=== PATIENT | female | born 1965 | race Caucasian/White ===

== ENCOUNTER 2023-06-07 06:00 | Outpatient (RCR) | payer BC, SELFPAY | END 2023-06-13 23:59 | disposition home or self-care (01) | LOC: WPT 06:00 | PROVIDERS: Family Provider Nurse Practitioner Family; PCP Nurse Practitioner Family; Visit Provider Neurological Surgery | DX: M54.2 Cervicalgia (principal) | CPT/HCPCS: 97110; 97112; 97161; 97530 ==

== ENCOUNTER 2023-06-14 06:00 | Outpatient (RCR) | payer BC, SELFPAY | END 2023-07-13 23:59 | disposition home or self-care (01) | LOC: WPT 06:00 | PROVIDERS: PCP Nurse Practitioner Family; Visit Provider Neurological Surgery | DX: M54.2 Cervicalgia (principal) | CPT/HCPCS: 97110; 97112; 97530 ==

== ENCOUNTER 2023-07-14 06:00 | Outpatient (RCR) | payer BC, SELFPAY | END 2023-08-13 23:59 | disposition home or self-care (01) | LOC: WPT 06:00 | PROVIDERS: PCP Nurse Practitioner Family; Visit Provider Neurological Surgery | DX: M54.2 Cervicalgia (principal) | CPT/HCPCS: 97110; 97112; 97530 ==

== ENCOUNTER 2023-08-14 06:00 | Outpatient (RCR) | payer BC, SELFPAY | END 2023-09-12 23:59 | disposition home or self-care (01) | LOC: WPT 06:00 | PROVIDERS: PCP Nurse Practitioner Family; Visit Provider Neurological Surgery | DX: M54.2 Cervicalgia (principal) | CPT/HCPCS: 97110; 97112; 97530 ==

== ENCOUNTER → 2024-05-15 12:44 | Outpatient (BNVA) | payer BC, SELFPAY | PROVIDERS: PCP Nurse Practitioner Family; Visit Provider Podiatrist Foot & Ankle Surgery | DX: M79.672 Pain in left foot (principal); M72.2 Plantar fascial fibromatosis | CPT/HCPCS: 73630 ==

== ENCOUNTER 2025-03-09 14:03 | Outpatient (CLI) | payer BC, SELFPAY ==
--- NOTE | 2025-03-09 13:45 | US_ITS ---
WS: [id number] THYROID ULTRASOUND HISTORY: E03.9 - Hypothyroidism, unspecified COMPARISON: None available. Right lobe: 1.6 cm x 2.0 cm x 4.5 cm (w x ap x l). Volume: 6.6 cm3. Heterogeneous thyroid gland. There are few cystic areas and a lobulated contour of the gland. There is no discrete nodule or mass. Mild increased vascularity throughout the gland. Left lobe: 1.4 cm x 2.2 cm x 4.3 cm (w x ap x l). Volume: 6.4 cm3. Diffuse heterogeneous gland. There are a few tiny cystic areas with no solid nodule or mass. Increased vascularity. Isthmus: 0.4 cm. Enlarged heterogeneous isthmus. US/US thyroid [id number] IMPRESSION: 1. No thyroid nodules. 2. Heterogeneous thyroid gland with mild increased vascularity.
== END 2025-03-09 14:04 | disposition home or self-care (01) ==
LOC: RAD 14:05
PROVIDERS: PCP Nurse Practitioner Family; Visit Provider Nurse Practitioner Family
DX: E03.9 Hypothyroidism, unspecified (principal); E04.9 Nontoxic goiter, unspecified
CPT/HCPCS: 76536